=== PATIENT | female | born 1995 | race Caucasian/White ===

== ENCOUNTER 2019-01-12 04:28 | Emergency (ER) | payer BC ==
[~2019-01-12] VITALS: Ht 170.2 cm; Wt 78.2 kg
[2019-01-12 04:33] VITALS: Ht 170.2 cm; Wt 78.2 kg
[2019-01-12] MEDS ORDERED: KETOROLAC 30 MG INJ IV STA (05:06)
[2019-01-12] MEDS ORDERED: morphine 4 MG/ML VIAL IV STA (05:06)
[2019-01-12] MEDS ORDERED: SOD CHLORIDE 0.9% 1,000 ML IV STA (05:06)
[2019-01-12] MEDS ORDERED: ONDANSETRON 4 MG INJ IV STA ×3 (05:06→07:44)
--- NOTE | 2019-01-12 06:23 | ERD ---
ER Documentation Chief Complaint Chief Complaint L flank pain radiating to front groin, vomited HPI This is a 23-year-old female who stated that 9 PM last night she developed some left low back pain and 1 hour later the pain radiated to the left lower quadrant adnexal region and into the groin somewhat with nausea vomiting x1. No dysuria or gross hematuria. No history of ovarian cysts or kidney stones in the past. Currently her pain is moderate to severe. No fever no diarrhea ROS All systems reviewed and are negative except as per history of present illness. Allergies Allergies: Coded Allergies: Penicillins (Verified Allergy, Unknown, rash, 01/12/19) PMhx/Soc Medical and Surgical Hx: pt denies Medical Hx, pt denies Surgical Hx History of Surgery: No Anesthesia Reaction: No Hx Neurological Disorder: No Hx Respiratory Disorders: No Hx Cardiac Disorders: No Hx Psychiatric Problems: No Hx Miscellaneous Medical Probl: No Hx Alcohol Use: Yes (OCASSIONALLY) Hx Substance Use: No Hx Tobacco Use: No Smoking Status: Never smoker FmHx Family History: No coronary disease Physical Exam Vitals Vital Signs Date Temp Pulse Resp B/P (MAP) Pulse Ox O2 O2 Flow FiO2 Time Delivery Rate 01/12/19 56 17 136/83 100 Room Air 05:15 (100) 01/12/19 98.7 67 18 130/73 99 04:33 (92) Physical Exam Const: Well-developed, well-nourished Head: Atraumatic, normocephalic Eyes: Normal Conjunctiva, PERRLA, EOMI, normal sclera, no nystagmus ENT: Normal External Ears, Nose and Mouth, moist mucus membranes. Neck: Full range of motion. No meningismus, no lymphadenopathy. Resp: Clear to auscultation bilaterally, no wheezing, rhonchi, rales Cardio: Regular rate and rhythm, no murmurs, S1 S2 present Abd: Soft, moderate tenderness to the left lower quadrant and left adnexal region, non distended. Normal bowel sounds, no guarding or rebound, no pulsitile abdominal masses or bruits Skin: No petechiae or rashes, no ecchymosis , no maculopapular rash Back: No midline or flank tenderness Ext: No cyanosis, or edema, FROM x 4, normal inspection, neurovascularly intact x 4 Neur: Awake and alert, STR 5/5 x 4, sensation intact x 4, no focal findings, cerebellum intact Psych: Normal Mood and Affect Result Diagram: 01/12/19 0513 01/12/19 0513 Results 24 hrs Laboratory Tests Test 01/12/19 05:13 01/12/19 05:15 01/12/19 05:44 White Blood Count 9.7 10^3/ul Red Blood Count 4.30 10^6/ul Hemoglobin 13.4 g/dl Hematocrit 40.3 % Mean Corpuscular Volume 93.7 fl Mean Corpuscular Hemoglobin 31.2 pg Mean Corpuscular 33.3 g/dl Hemoglobin Concent Red Cell Distribution Width 13.0 % Platelet Count 210 10^3/UL Mean Platelet Volume 10.0 fl Immature Granulocytes % 0.400 % Neutrophils % 80.1 % Lymphocytes % 14.6 % Monocytes % 4.6 % Eosinophils % 0.0 % Basophils % 0.3 % Nucleated Red Blood Cells % 0.0 /100WBC Immature Granulocytes # 0.040 10^3/ul Neutrophils # 7.7 10^3/ul Lymphocytes # 1.4 10^3/ul Monocytes # 0.4 10^3/ul Eosinophils # 0.0 10^3/ul Basophils # 0.0 10^3/ul Nucleated Red Blood Cells # 0.0 10^3/ul Sodium Level 138 mmol/L Potassium Level 4.2 mmol/L Chloride Level 101 mmol/L Carbon Dioxide Level 27 mmol/L Anion Gap 10 Blood Urea Nitrogen 15 mg/dl Creatinine 0.76 mg/dl Est Glomerular Filtrat > 60 mL/min Rate mL/min Glucose Level 137 mg/dl Calcium Level 9.5 mg/dl Total Bilirubin 0.5 mg/dl Direct Bilirubin 0.00 mg/dl Indirect Bilirubin 0.5 mg/dl Aspartate Amino Transf (AST/SGOT) 32 IU/L Alanine 28 IU/L Aminotransferase (ALT/SGPT) Alkaline Phosphatase 51 IU/L Total Protein 7.6 g/dl Albumin 4.5 g/dl Globulin 3.10 g/dl Albumin/Globulin Ratio 1.45 Lipase 52 U/L Urine Color YELLOW Urine Clarity SLIGHTLY CLOUDY Urine pH 7.0 Urine Specific [place] 1.031 Urine Ketones 2+ mg/dL Urine Nitrite NEGATIVE mg/dL Urine Bilirubin NEGATIVE mg/dL Urine Urobilinogen NEGATIVE mg/dL Urine Leukocyte Esterase NEGATIVE Mariano/ul Urine Microscopic RBC 2 /HPF Urine Microscopic WBC 1 /HPF Urine Squamous Epithelial Cells FEW /HPF Urine Bacteria FEW /HPF Urine Mucus FEW /HPF Urine Hemoglobin NEGATIVE mg/dL Urine Glucose NEGATIVE mg/dL Urine Total Protein 1+ mg/dl POC Beta HCG, Qualitative NEGATIVE Current Medications Medications Dose Sig/Warner Start Time Status Last (Trade) Ordered Route PRN Stop Time Admin Dose Reason Admin Sodium 1,000 ml @ Q1H STAT 01/12/19 DC 01/12/19 Chloride 1,000 mls/hr IV 05:06 01/12/19 05:36 06:05 Morphine 4 mg ONCE STAT 01/12/19 DC 01/12/19 Sulfate IV 05:06 01/12/19 05:29 (morphine) 05:08 Ondansetron 4 mg ONCE STAT 01/12/19 DC 01/12/19 HCl (Zofran IV 05:06 01/12/19 05:29 Inj) 05:08 Ketorolac 30 mg ONCE STAT 01/12/19 DC 01/12/19 Tromethamine IV 05:06 01/12/19 05:29 (Toradol) 05:08 1 mg ONCE STAT 01/12/19 DC 01/12/19 Hydromorphone IV 06:28 01/12/19 07:06 HCl 06:29 (Dilaudid) Ondansetron 4 mg ONCE STAT 01/12/19 DC 01/12/19 HCl (Zofran IV 06:28 01/12/19 07:05 Inj) 06:29 Procedures/MDM Ordering MD: QUINTIN PLUMMER MD Location: E/R Room/Bed: PROCEDURE: CT Abdomen and Pelvis without contrast. CLINICAL INDICATION: Abdominal pain. TECHNIQUE: CT scan of the abdomen and pelvis without contrast was performed on a multidetector CT scanner. The patient was scanned without intravenous contrast. Coronal and sagittal reformatted images were obtained from the axial source images. Images were reviewed on a high-resolution PACS workstation. DICOM images are available. One or more of the following dose reduction techniques were used: -Automated exposure control. -Adjustment of the mA and/or kV according to patient size. -Use of iterative reconstruction technique. The total exam CTDI equals 12.60 mGy and the total exam DLP equals 727.48 mGy- cm. COMPARISON: None. FINDINGS: Please note that the sensitivity for detection of focal lesions or vascular disease is markedly reduced without intravenous contrast. The visualized lung bases are clear. CT abdomen: Liver: Unremarkable. Biliary system: No intra or extrahepatic biliary ductal dilatation. Gallbladder: Unremarkable. Pancreas: Unremarkable. Spleen: Unremarkable. Adrenal glands: Unremarkable. Right kidney: Unremarkable. No renal or ureteric stones. No hydronephrosis or hydroureter. Left kidney: Unremarkable. No renal or ureteric stones. No hydronephrosis or hydroureter. Bowel loops: Unremarkable. There is no bowel obstruction. No evidence of acute appendicitis. Lymph Nodes: There is no mesenteric lymphadenopathy. There is no retroperitoneal lymphadenopathy. CT pelvis: Bowel loops: Unremarkable. Rectum: Unremarkable. Urinary bladder: Unremarkable. Uterus grossly unremarkable. Cystic structure in the posterior pelvis measuring 5.1 x 3.7 cm. Trace free flui d in the pelvis. Lymph nodes: There is no iliac lymphadenopathy. There is no inguinal lymphadenopathy. Bone: No aggressive osseous lesions. IMPRESSION: 1. Cystic structure in the posterior pelvis measuring 5.1 x 3.7 cm, which may represent an ovarian cyst, however given size further evaluation with pelvic ultrasound is recommended. Trace free fluid in the pelvis. 2. No evidence of acute appendicitis. 3. No renal or ureteric calculi. RPTAT: [facility] Physician Bethanie Date Time Electronically viewed and signed by Vicki Nowak Physician on 01/12/2019 07:10 PH/ CC: QUINTIN PLUMMER MD: ANUM ORNELAS DO Location: E/R Room/Bed: PROCEDURE: US Pelvis Non-OB Abdominal CLINICAL INDICATION: Left lower quadrant pain. TECHNIQUE: Sonographic imaging of the pelvis was performed using transabdominal technique. Grayscale and color Doppler was utilized. COMPARISON: CT abdomen and pelvis from the same day. FINDINGS: UTERUS: Measures 6.6 x 3.4 x 4.1 cm without appreciated abnormality. ENDOMETRIAL STRIPE: 0.7 cm in thickness. RIGHT OVARY: Measures 4.0 x 3.1 x 2.8 cm without appreciated abnormality. Vascular flow is demonstrated. LEFT OVARY: Measures 3.7 x 2.2 x 2.3 cm with parenchymal vascular flow. There is an adjacent paraovarian cyst posterior to the uterus measuring 4.5 x 3.4 x 4.0 cm as demonstrated on the recent CT.. FREE FLUID: Slight free fluid is noted. IMPRESSION: 1. 4.5 x 3.4 x 4.0 cm left paraovarian cyst is again seen. 2. Small amount of free fluid is likely physiologic. 3. Follow-up imaging is not necessarily indicated. RPTAT:[facility] Arie Daly Physician Date Time Electronically viewed and signed by Arie Daly Physician on 01/12/2019 07:26 GT/ CC: ANUM ORNELAS DO [id number] Patient has ovarian cyst but there is blood flow to the ovary. Discussed ovarian torsion concerns with the patient and signs and symptoms to watch for to return. Will discharge her home with follow-up with [facility] and pain medication Patient feels much better at this time, and vital signs are normal, symptoms have improved. I did give strict instructions to return to the ED if symptoms continue or worsen, patient will otherwise follow-up with primary care physician. Patient understood instructions and agreed to plan. Disclaimer: Inadvertent spelling and grammatical errors are likely due to EHR/dictation software use and do not reflect on the overall quality of patient care. Also, please note that the electronic time recorded on this note does not necessarily reflect the actual time of the patient encounter. Departure Diagnosis: Primary Impression: Ovarian cyst Laterality: left Qualified Codes: N83.202 - Unspecified ovarian cyst, left side Additional Impression: Flank pain Condition: Stable ANMU ORNELAS DO Jan 12, 2019 06:23
[2019-01-12] MEDS ORDERED: HYDROmorphONE 1 MG/ML SYG IV STA ×2 (06:28→07:44)
[2019-01-12] MEDS ORDERED: HYDR-3980 PO (07:48)
[2019-01-12] MEDS ORDERED: IBUP800T48 PO (07:48)
[2019-01-12] MEDS ORDERED: ONDA4TAB14 PO (07:48)
[2019-01-12 08:08] VITALS: BP 140/78; PULSE 62; RESP 20
== END 2019-01-12 08:10 | disposition home or self-care (01) ==
LOC: E/R 04:28
DX: N83.202 Unspecified ovarian cyst, left side (principal)
CPT/HCPCS: 36415; 74176; 76856; 80053; 81001; 81025; 83690; 85025; 96374; 96375; 96376; 99285; J1170; J1885; J2270; J2405; J7030